=== PATIENT | male | born 1930 | race Caucasian/White ===

== ENCOUNTER 2019-05-16 21:00 | Emergency (ER) | payer BC ==
[~2019-05-16] VITALS: Ht 182.9 cm; Wt 90.7 kg
[2019-05-16 21:17] VITALS: BP_SYST 121
[2019-05-16] MEDS ORDERED: LIDOCAINE VISCOUS 2%, 15 ML UDC MM ONE (22:30)
[2019-05-17 00:18] VITALS: BP_SYST 122
== END 2019-05-17 00:18 | disposition home or self-care (01) ==
LOC: SED 21:00
DX: R33.9 Retention of urine, unspecified (principal); R07.89 Other chest pain; Z90.49 Acquired absence of other specified parts of digestive tract; Z95.1 Presence of aortocoronary bypass graft
CPT/HCPCS: 51702; 71100; 99284; J2001

== ENCOUNTER 2019-05-28 23:37 | Emergency (ER) | payer BC ==
[~2019-05-28] VITALS: Ht 185.4 cm; Wt 93.0 kg
--- NOTE | 2019-05-28 23:40 | NUR ---
Patient to ER bed 8 for evaluation.
[2019-05-28 23:42] VITALS: BP_SYST 123
--- NOTE | 2019-05-28 23:42 | NUR ---
ER MD Song at bedside for medical evaluation.
--- NOTE | 2019-05-28 23:45 | NUR ---
Forehead abrasion cleansed with NS, patient tolerated well.
--- NOTE | 2019-05-28 23:45 | NUR ---
Patient to ER via EMT ambulance from [place] for evaluation of abrasion to left sided forehead after non-syncopal trip and fall. No LOC reported, no neck or back pain. Patient able to move all extremities, no active bleeding noted. Patient is awake, alert and oriented in no acute distress, vital signs stable, respirations even and unlabored, skin warm and dry to touch. Patient brought to bed 8. Patient has been seen and evaluated by Dr Song, will continue to observe and assess.
--- NOTE | 2019-05-28 23:47 | NUR ---
Patient to CT Scan in stable condition via gurney.
[2019-05-28] MEDS ORDERED: POTA10TA15 PO (23:55)
[2019-05-28] MEDS ORDERED: METO25TA3 PO (23:55)
[2019-05-28] MEDS ORDERED: DOCU-144 PO (23:55)
[2019-05-28] MEDS ORDERED: FAMO20TA8 PO (23:55)
[2019-05-28] MEDS ORDERED: CLOP300T2 PO (23:55)
[2019-05-28] MEDS ORDERED: ASCO500T20 PO (23:55)
[2019-05-28] MEDS ORDERED: PARO-41 PO (23:55)
[2019-05-28] MEDS ORDERED: FURO-149 PO (23:55)
[2019-05-28] MEDS ORDERED: ASA81 PO (23:55)
[2019-05-28] MEDS ORDERED: LIP40 PO (23:55)
[2019-05-28] MEDS ORDERED: TEMA7.5C PO (23:55)
[2019-05-28] MEDS ORDERED: MULT-1117 PO (23:55)
--- NOTE | 2019-05-28 23:55 | NUR ---
Medication reconciliation completed with information provided by facility([facility]). Any prior medication reconciliation on file was reviewed and corrected.
[2019-05-29] MEDS ORDERED: DIPH-TET-PERTUS Vaccine 0.5 ML VIAL (ADACEL) I.M. ONE
--- NOTE | 2019-05-29 | NUR ---
Patient returned from CT scan in stable condition via [facility].
[2019-05-29 00:34] LABS: BASOPHILS # (AUTO) 0.1 K/uL (0.0-0.2); BASOPHILS % (AUTO) 0.9 % (0.0-2.0); EOSINOPHILS % (AUTO) 0.3 % (0.0-4.0); HEMATOCRIT 29.3 % (36-54); HEMOGLOBIN 9.9 g/dL (14.0-18.0); LYMPHOCYTES # (AUTO) 0.9 K/uL (1.0-5.5); LYMPHOCYTES % (AUTO) 12.9 % (20.5-51.5); MEAN CORPUSCULAR HEMOGLOBIN 30 pg (27-31); MEAN CORPUSCULAR HGB CONC 34 % (32-36); MEAN CORPUSCULAR VOLUME 88 fL (79.0-98.0); MONOCYTES # (AUTO) 1.2 K/uL (0.0-1.0); NEUTROPHILS # (AUTO) 4.9 K/uL (1.8-7.7); NEUTROPHILS % (AUTO) 68.9 % (40.0-70.0); PLATELET COUNT (AUTO) 261 K/uL (130-430); RED BLOOD CELL COUNT(AUTO) 3.34 MIL/uL (4.2-6.2); WHITE BLOOD COUNT (AUTO) 7.1 K/uL (4.8-10.8)
[2019-05-29 00:53] LABS: ALANINE AMINOTRANSFERASE 35 U/L (12-78); ALBUMIN 2.8 g/dL (3.4-4.8); ANION GAP 8 (5-15); ASPARTATE AMINOTRANSFERASE 23 U/L (10-37); CALCIUM 8.8 mg/dL (8.4-11.0); CHLORIDE 96 mmol/L (98-107); CREATININE 0.81 mg/dL (0.55-1.30); GLUCOSE 117 mg/dL (70-99); POTASSIUM 3.6 mmol/L (3.5-5.1); SODIUM SERUM 133 mmol/L (136-145); TOTAL BILIRUBIN 0.3 mg/dL (0.0-1.0); UREA NITROGEN, BLOOD 35 mg/dL (8-21)
--- NOTE | 2019-05-29 01:00 | NUR ---
Patient resting quietly in no acute distress, awaiting dispo. Will continue to observe and assess.
--- NOTE | 2019-05-29 02:00 | NUR ---
Patient resting quietly in no acute distress, awaiting dispo.
--- NOTE | 2019-05-29 02:06 | NUR ---
Blankets provided for patient comfort, awaiting dispo.
--- NOTE | 2019-05-29 02:15 | NUR ---
Called [facility] and advised them that the patient would be returning, just waiting on an ambulance to transport the patient back to the facility.
--- NOTE | 2019-05-29 03:00 | NUR ---
Patient resting quietly in no acute distress, awaiting ambulance transfer back to [place].
[2019-05-29 03:15] VITALS: BP_SYST 116
--- NOTE | 2019-05-29 03:15 | NUR ---
Patient given written and verbal discharge instructions and verbalizes understanding. ER MD discussed with patient the results and treatment provided. Patient in stable condition. ID arm band removed. IV catheter removed intact and dressing applied, no active bleeding. No RX given. Patient educated on pain management and to follow up with PMD. Pain Scale 0. Opportunity for questions provided and answered. Medication side effect fact sheet provided. Patient left ER in no acute distress, patient transported back to [facility] via EMT ambulance in stable condition. No adverse reaction noted to medication.
== END 2019-05-29 03:15 | disposition home or self-care (01) ==
LOC: SED 23:37
DX: S00.81XA Abrasion of other part of head, initial encounter (principal); I25.2 Old myocardial infarction; Z86.73 Personal history of transient ischemic attack (TIA), and cerebral infarction without residual deficits; Z79.82 Long term (current) use of aspirin; Z79.899 Other long term (current) drug therapy; W01.198A Fall on same level from slipping, tripping and stumbling with subsequent striking against other object, initial encounter; Y93.89 Activity, other specified; Y92.89 Other specified places as the place of occurrence of the external cause; Y99.8 Other external cause status
CPT/HCPCS: 36415; 70450-TC; 80053; 85025; 90715; 99284

== ENCOUNTER 2019-05-30 10:32 | Emergency (ER) | payer BC ==
[~2019-05-30] VITALS: Ht 185.4 cm; Wt 93.0 kg
[~2019-05-30 10:32] MED LIST: ASA81 PO; ASCO500T20 PO; CLOP300T2 PO; DOCU-144 PO; FAMO20TA8 PO; FURO-149 PO; LIP40 PO; METO25TA3 PO; MULT-1117 PO; PARO-41 PO; POTA10TA15 PO; TEMA7.5C PO
[2019-05-30 10:38] VITALS: BP_SYST 142
[2019-05-30 11:00] LABS: BASOPHILS # (AUTO) 0.1 K/uL (0.0-0.2); EOSINOPHILS % (AUTO) 0.2 % (0.0-4.0); HEMATOCRIT 31.3 % (36-54); HEMOGLOBIN 10.4 g/dL (14.0-18.0); LYMPHOCYTES # (AUTO) 0.9 K/uL (1.0-5.5); LYMPHOCYTES % (AUTO) 15.4 % (20.5-51.5); MEAN CORPUSCULAR HEMOGLOBIN 29 pg (27-31); MEAN CORPUSCULAR HGB CONC 33 % (32-36); MEAN CORPUSCULAR VOLUME 88 fL (79.0-98.0); MONOCYTES % (AUTO) 17.7 % (1.7-9.3); NEUTROPHILS # (AUTO) 3.6 K/uL (1.8-7.7); NEUTROPHILS % (AUTO) 65.7 % (40.0-70.0); PLATELET COUNT (AUTO) 251 K/uL (130-430); RED BLOOD CELL COUNT(AUTO) 3.55 MIL/uL (4.2-6.2); RED CELL DISTRIBUTION WIDTH 16.9 % (9.0-15.0); WHITE BLOOD COUNT (AUTO) 5.5 K/uL (4.8-10.8)
[2019-05-30 11:11] LABS: ANION GAP 1 (5-15); CALCIUM 9.1 mg/dL (8.4-11.0); CHLORIDE 100 mmol/L (98-107); CREATININE 0.92 mg/dL (0.55-1.30); GLUCOSE 119 mg/dL (70-99); POTASSIUM 3.8 mmol/L (3.5-5.1); SODIUM SERUM 132 mmol/L (136-145); UREA NITROGEN, BLOOD 30 mg/dL (8-21)
[2019-05-30 11:14] LABS: PROTHROMBIN TIME 10.6 SECS (9.5-12.5)
[2019-05-30 11:19] LABS: ALANINE AMINOTRANSFERASE 35 U/L (12-78); AMYLASE 29 U/L (0-100); ASPARTATE AMINOTRANSFERASE 19 U/L (10-37); TOTAL BILIRUBIN 0.4 mg/dL (0.0-1.0)
[2019-05-30 11:20] LABS: LIPASE 126 U/L (73-393)
[2019-05-30 13:05] VITALS: BP_SYST 142
== END 2019-05-30 13:05 | disposition home or self-care (01) ==
LOC: SED 10:32
DX: T83.018A Breakdown (mechanical) of other urinary catheter, initial encounter (principal); R33.9 Retention of urine, unspecified; N39.0 Urinary tract infection, site not specified; R03.0 Elevated blood-pressure reading, without diagnosis of hypertension; I25.2 Old myocardial infarction; Z86.73 Personal history of transient ischemic attack (TIA), and cerebral infarction without residual deficits; Z79.82 Long term (current) use of aspirin; Z79.899 Other long term (current) drug therapy; Y83.9 Surgical procedure, unspecified as the cause of abnormal reaction of the patient, or of later complication, without mention of misadventure at the time of the procedure; Y92.89 Other specified places as the place of occurrence of the external cause
CPT/HCPCS: 36415; 80053; 82150-TC; 83605; 83690-TC; 85025; 85610-TC; 85730-TC; 99284

== ENCOUNTER 2019-06-01 17:02 | Emergency (ER) | payer BC ==
[~2019-06-01] VITALS: Ht 185.4 cm; Wt 93.0 kg
--- NOTE | 2019-06-01 17:02 | NUR ---
Patient to ER via EMT ambulance, has been triaged and is waiting for bed assignment.
--- NOTE | 2019-06-01 17:05 | NUR ---
ER at bedside examining patient. Patient still waiting for bed placement.
[2019-06-01 17:06] VITALS: BP_SYST 157
[2019-06-01 17:33] LABS: BASOPHILS % (AUTO) 0.6 % (0.0-2.0); HEMATOCRIT 34.2 % (36-54); HEMOGLOBIN 11.5 g/dL (14.0-18.0); LYMPHOCYTES # (AUTO) 0.5 K/uL (1.0-5.5); LYMPHOCYTES % (AUTO) 5.5 % (20.5-51.5); MEAN CORPUSCULAR HEMOGLOBIN 29 pg (27-31); MEAN CORPUSCULAR HGB CONC 34 % (32-36); MEAN CORPUSCULAR VOLUME 87 fL (79.0-98.0); MONOCYTES % (AUTO) 11.5 % (1.7-9.3); NEUTROPHILS # (AUTO) 7.2 K/uL (1.8-7.7); NEUTROPHILS % (AUTO) 82.4 % (40.0-70.0); PLATELET COUNT (AUTO) 268 K/uL (130-430); RED BLOOD CELL COUNT(AUTO) 3.94 MIL/uL (4.2-6.2); RED CELL DISTRIBUTION WIDTH 16.2 % (9.0-15.0); WHITE BLOOD COUNT (AUTO) 8.7 K/uL (4.8-10.8)
--- NOTE | 2019-06-01 17:33 | NUR ---
Patient to ER bed 8 for evaluation. Side rails up.
--- NOTE | 2019-06-01 17:35 | NUR ---
Patient to ER via EMT ambulance for evaluation of urinary retention, abdominal distention and constipation. Patient is awake, alert and oriented in no acute distress, vital signs stable, respirations even and unlabored, skin warm and dry to touch. Patient has been seen and evaluated by Dr Marie while waiting for bed assignment. Will continue to observe and assess.
[2019-06-01 17:43] LABS: ANION GAP 12 (5-15); CALCIUM 9.5 mg/dL (8.4-11.0); CHLORIDE 94 mmol/L (98-107); CREATININE 0.76 mg/dL (0.55-1.30); GLUCOSE 138 mg/dL (70-99); POTASSIUM 3.5 mmol/L (3.5-5.1); SODIUM SERUM 129 mmol/L (136-145); UREA NITROGEN, BLOOD 43 mg/dL (8-21)
[2019-06-01 17:46] LABS: PROTHROMBIN TIME 10.5 SECS (9.5-12.5)
[2019-06-01 17:47] LABS: ALANINE AMINOTRANSFERASE 37 U/L (12-78); ALBUMIN 3.6 g/dL (3.4-4.8); ASPARTATE AMINOTRANSFERASE 17 U/L (10-37); LIPASE 150 U/L (73-393); TOTAL BILIRUBIN 0.4 mg/dL (0.0-1.0)
--- NOTE | 2019-06-01 17:55 | NUR ---
# 16 FR Gonzalez catheter with use of sterile technique. Immediate return of 500 cc clear/yellow urine noted. Bedside drainage bag placed below level of bladder. Urine sample collected and sent to lab. Pt tolerated procedure well. Patient unable to void, sent in from [facility] for evaluation of urinary retention.
[2019-06-01 18:05] LABS: BILIRUBIN,URINE NEGATIVE (NEGATIVE); BLOOD, URINE NEGATIVE (NEGATIVE); CLARITY/URINE CLEAR (CLEAR); COLOR,URINE YELLOW (YELLOW); GLUCOSE,URINE NEGATIVE (NEGATIVE); KETONES,URINE NEGATIVE (NEGATIVE); LEUKOCYTE ESTERASE ,URINE NEGATIVE (NEGATIVE); NITRITE, URINE NEGATIVE (NEGATIVE); PH,URINE 5.5 (5.0-8.0); PROTEIN URINE NEGATIVE (NEGATIVE); UROBILINOGEN,URINE 0.2 (0.2-1.0)
--- NOTE | 2019-06-01 18:05 | NUR ---
Patient reports relief after having soriano catheter placed. Awaiting results and dispo. Will continue to observe and assess.
--- NOTE | 2019-06-01 19:00 | NUR ---
Patient resting quietly in no acute distress, patient feeling better after soriano catheter placement. Awaiting transport back to [place].
[2019-06-01 19:50] VITALS: BP_SYST 140
--- NOTE | 2019-06-01 19:50 | NUR ---
Report called to [facility], ambulance here report given to EMT's for transport back to [facility].
--- NOTE | 2019-06-01 19:50 | NUR ---
Patient given written and verbal discharge instructions and verbalizes understanding. ER MD discussed with patient the results and treatment provided. Patient in stable condition. ID arm band removed. No RX given. Patient educated on pain management and to follow up with PMD. Pain Scale 0. Opportunity for questions provided and answered. Medication side effect fact sheet provided. Patient left ER in stable condition via EMT ambulance.
== END 2019-06-01 19:50 | disposition home or self-care (01) ==
LOC: SED 17:02
DX: R33.9 Retention of urine, unspecified (principal); I11.0 Hypertensive heart disease with heart failure; I50.9 Heart failure, unspecified; I25.2 Old myocardial infarction; Z90.49 Acquired absence of other specified parts of digestive tract; Z86.73 Personal history of transient ischemic attack (TIA), and cerebral infarction without residual deficits; Z79.82 Long term (current) use of aspirin; Z79.899 Other long term (current) drug therapy
CPT/HCPCS: 36415; 80053; 81003; 83690-TC; 85025; 85610-TC; 85730-TC; 99284

== ENCOUNTER 2019-06-03 22:55 | Inpatient (IN) | payer BC ==
[~2019-06-03] VITALS: Ht 182.9 cm; Wt 91.6 kg
[2019-06-03 23:09] VITALS: BP_SYST 119
--- NOTE | 2019-06-03 23:09 | NUR ---
Placed in room 06 . Placed on swimming coach or instructor, blood pressure machine and pulse oximeter. To gown for exam. Side rails up.
--- NOTE | 2019-06-03 23:23 | NUR ---
Dr. oJ bedside for Pt eval
[2019-06-03 23:33] LABS: BASOPHILS # (AUTO) 0.1 K/uL (0.0-0.2); BASOPHILS % (AUTO) 1.5 % (0.0-2.0); EOSINOPHILS % (AUTO) 0.4 % (0.0-4.0); HEMATOCRIT 29.4 % (36-54); HEMOGLOBIN 9.8 g/dL (14.0-18.0); LYMPHOCYTES # (AUTO) 0.8 K/uL (1.0-5.5); LYMPHOCYTES % (AUTO) 12.6 % (20.5-51.5); MEAN CORPUSCULAR HEMOGLOBIN 29 pg (27-31); MEAN CORPUSCULAR HGB CONC 33 % (32-36); MEAN CORPUSCULAR VOLUME 88 fL (79.0-98.0); MONOCYTES # (AUTO) 1.3 K/uL (0.0-1.0); MONOCYTES % (AUTO) 20.5 % (1.7-9.3); NEUTROPHILS # (AUTO) 4.1 K/uL (1.8-7.7); PLATELET COUNT (AUTO) 200 K/uL (130-430); RED BLOOD CELL COUNT(AUTO) 3.36 MIL/uL (4.2-6.2); RED CELL DISTRIBUTION WIDTH 16.5 % (9.0-15.0); WHITE BLOOD COUNT (AUTO) 6.4 K/uL (4.8-10.8)
--- NOTE | 2019-06-03 23:35 | NUR ---
Note undone in EDM - 06/04/19 at 0216 by [email or web address] Pt BIBA to ED C/O syncopal episode. Patient states that he was going to the bathroom to empty his Legbag and then was trying family back to his chair when he reports falling but does not remember the fall incident. Patient is not sure if he tripped over something or felt dizzy. Patient comes in with superficial abrasion and hematoma to the scalp. Patient is on blood thinners. 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 Patient also with a previous history of CVA with left-sided residual weakness. No other injuries and or complaints noted. VSS no s/s of acute distress. Resting on gurney with rails up
[2019-06-03 23:49] LABS: ANION GAP 8 (5-15); CALCIUM 8.6 mg/dL (8.4-11.0); CHLORIDE 100 mmol/L (98-107); CREATININE 0.89 mg/dL (0.55-1.30); GLUCOSE 106 mg/dL (70-99); POTASSIUM 3.7 mmol/L (3.5-5.1); SODIUM SERUM 135 mmol/L (136-145); UREA NITROGEN, BLOOD 33 mg/dL (8-21)
[2019-06-04 00:10] LABS: ALANINE AMINOTRANSFERASE 31 U/L (12-78); ALBUMIN 2.9 g/dL (3.4-4.8); ASPARTATE AMINOTRANSFERASE 19 U/L (10-37); TOTAL BILIRUBIN 0.3 mg/dL (0.0-1.0)
--- NOTE | 2019-06-04 00:45 | NUR ---
Pt repositioned for comfort. Pt verbalized "I'm feeling better"
--- NOTE | 2019-06-04 01:25 | NUR ---
Pt's family updated on pt condition and the possible admission
[2019-06-04] MEDS ORDERED: ASCO500C18 PO (01:43)
--- NOTE | 2019-06-04 01:58 | NUR ---
Carlos Curran from facility changed to new per [facility] protocol and Dr. Jo verbal order
[2019-06-04 01:59] VITALS: BP_SYST 133
--- NOTE | 2019-06-04 01:59 | NUR ---
Transfer to Telemetry via [facility] protocol. Licensed nurse present. IV present no signs or symptoms of infiltration.
--- NOTE | 2019-06-04 01:59 | NUR ---
Patient will be admitted to care of Dr. Peres. Admitted to Telemetry unit. Will go to room 132A. Belongings list completed. Summary report printed. Report will be given at bedside.
--- NOTE | 2019-06-04 01:59 | NUR ---
ADMISSION NOTE Received patient from ER via [facility], received report from DARYL GARCIA. Patient admitted with diagnosis of SYNCOPE, RULE OUT ACUTE CORONARY SYNDROME. Patient oriented to hospital routine, call light, toileting and safety-patient verbalized understanding.
--- NOTE | 2019-06-04 02:30 | NUR ---
initial notes: pt is awake, x 4. no pain. no sob and not distress. vital sign are stable and with in normal limit. sinus rhythm at monitor. pt has iv lock to his left fore arm gauge 20- intact and patent. pt has wounds on his buttocks, left knee, head, left hip and rash to his left groin. 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 urine sample was send. discuss to pt plan of care. how to use call light, safety precaution, medication and its side effects. pt verbalized understanding. needs attended. call light in reach. bed alarm on. side rails up. low bed position. will monitor.
[2019-06-04 02:59] LABS: BILIRUBIN,URINE NEGATIVE (NEGATIVE); BLOOD, URINE 3+ (NEGATIVE); CLARITY/URINE CLEAR (CLEAR); COLOR,URINE YELLOW (YELLOW); GLUCOSE,URINE NEGATIVE (NEGATIVE); KETONES,URINE NEGATIVE (NEGATIVE); LEUKOCYTE ESTERASE ,URINE 2+ (NEGATIVE); NITRITE, URINE NEGATIVE (NEGATIVE); PROTEIN URINE 1+ (NEGATIVE); UROBILINOGEN,URINE 0.2 (0.2-1.0)
[2019-06-04 03:05] LABS: BACTERIA,URINE MANY /HPF (None Seen); WBC,URINE 50-80 /HPF (0-3)
[2019-06-04 03:06] LABS: YEAST,URINE Few /HPF (None Seen)
--- NOTE | 2019-06-04 03:10 | NUR ---
DR. FUNES IS AT THE UNIT SEE THE PT. INFORM MD THE HAS POSITIVE UA AND CULTURE IS SEND ALREADY AND ALSO PT WANTS SLEEPING PILLS. MD ORDER ONE DOSE OF ROCEPHINE AND ONE OF RESTORIL.
[2019-06-04] MEDS ORDERED: cefTRIAXone 1 GM in D5W 50 ML IV SCH (03:15)
[2019-06-04] MEDS ORDERED: TEMAZEPAM 15 MG CAPSULE PO ONE (03:15)
--- NOTE | 2019-06-04 04:00 | NUR ---
PT IS RESTING RIGHT NOW. NO PAIN. NOT DISTRESS, NO SOB. STABLE. CALL LIGHT IN REACH. SIDE RAILS UP LOW BED POSITION. WILL MONITOR.
[2019-06-04] MEDS ORDERED: cefTRIAXone 1 GM IVPB PREMIX 50 ML IV ONE (04:07)
[2019-06-04] MEDS ORDERED: ACETAMINOPHEN 325 MG TABLET PO PRN (04:30)
[2019-06-04] MEDS ORDERED: ONDANSETRON HCL 4 MG/2 ML VIAL IVP PRN (04:30)
--- NOTE | 2019-06-04 06:00 | NUR ---
sleeping, comfortable. no pain. no sob. not distress. stable. needs attended. bed alarm on. side rails up. call light in reach. will follow-up.
--- NOTE | 2019-06-04 06:10 | NUR ---
CONSULTATION PAGED REASON FOR CONSULTATION:SYNCOPY, Hx OF [place] S/P STENT WAS CONSULT CALLED?Y PERSON WHO WAS NOTIFIED:RAKESH CONSULTING PHYSICIAN:DAVID FRANKS (STEVE HARDIN PROGRAMMING DEVELOPMENT PROJECT MANAGER) MACHINE INKER SPECIALTY:CARDIO MACHINE INKER PHONE NUMBER:[phone] REQUESTING PHYSICIAN:BLAIR DUCKWORTH
[2019-06-04 07:17] LABS: BASOPHILS # (AUTO) 0.1 K/uL (0.0-0.2); BASOPHILS % (AUTO) 0.9 % (0.0-2.0); EOSINOPHILS % (AUTO) 0.3 % (0.0-4.0); HEMATOCRIT 30.8 % (36-54); HEMOGLOBIN 10.3 g/dL (14.0-18.0); LYMPHOCYTES # (AUTO) 0.8 K/uL (1.0-5.5); LYMPHOCYTES % (AUTO) 12.7 % (20.5-51.5); MEAN CORPUSCULAR HEMOGLOBIN 29 pg (27-31); MEAN CORPUSCULAR HGB CONC 33 % (32-36); MEAN CORPUSCULAR VOLUME 88 fL (79.0-98.0); MONOCYTES # (AUTO) 1.4 K/uL (0.0-1.0); MONOCYTES % (AUTO) 22.1 % (1.7-9.3); PLATELET COUNT (AUTO) 187 K/uL (130-430); RED BLOOD CELL COUNT(AUTO) 3.52 MIL/uL (4.2-6.2); RED CELL DISTRIBUTION WIDTH 16.4 % (9.0-15.0); WHITE BLOOD COUNT (AUTO) 6.3 K/uL (4.8-10.8)
--- NOTE | 2019-06-04 07:30 | NUR ---
closing: pt is sleeping, comfortable. no pain. no difficulty of breathing. not distress. iv lock to left forearm is intact. soriano catheter is drain by gravity and lower that body level. needs attended. call light in reach. side rails up bed alarm for fall precaution. bed side report given to am rn.
[2019-06-04 07:32] LABS: INR 1.1 (0.80-1.20)
[2019-06-04 07:40] LABS: ANION GAP 5 (5-15); CALCIUM 8.6 mg/dL (8.4-11.0); CHLORIDE 101 mmol/L (98-107); CREATININE 0.72 mg/dL (0.55-1.30); GLUCOSE 97 mg/dL (70-99); PHOSPHORUS 2.9 mg/dL (2.7-4.5); POTASSIUM 3.4 mmol/L (3.5-5.1); SODIUM SERUM 136 mmol/L (136-145); UREA NITROGEN, BLOOD 25 mg/dL (8-21)
--- NOTE | 2019-06-04 07:41 | NUR ---
OPENING NOTE Patient resting in the bed with eyes closed. No acute distress. Respiration even and unlabored. Skin warm and dry to touch. IV intact to LFA, no redness, no swelling, patent. Dressing intact to head, no bleeding noted. F/C intact, drain gravity with yellow urine. Safety measure maintained. Call light within reached. Bed locked in low position, side rails up, bed alarm on. Will continue to monitor.
[2019-06-04 07:55] VITALS: BP_SYST 115
[2019-06-04 08:02] LABS: CHOLESTEROL 71 mg/dL (<200); TRIGLYCERIDES 44 mg/dL (30-150)
[2019-06-04 08:03] LABS: HDL CHOLESTEROL 46 mg/dL (>45); LDL CHOLESTEROL 20 mg/dL (<100)
--- NOTE | 2019-06-04 08:05 | NUR ---
PAGED PAGED STEVE HARDIN AT [phone] SPOKE WITH JIN.
--- NOTE | 2019-06-04 08:22 | NUR ---
DR. DOWD, STEVE CALLED BACK Received the call back from Dr. Dowd (director of national sales for Dr. Orozco), reported the Troponin=0.076. Dr. Dowd stated "don't call me for Troponin level". No new order at this time.
[2019-06-04] MEDS: DOCUSATE SODIUM 100 MG CAPSULE PO SCH ×2 (08:50→20:43)
[2019-06-04] MEDS: ASPIRIN 81 MG TAB.CHEW PO SCH (08:52)
[2019-06-04] MEDS: CLOPIDOGREL BISULFATE 75 MG TABLET PO SCH (08:52)
[2019-06-04] MEDS: FAMOTIDINE 20 MG TABLET PO SCH (08:52)
[2019-06-04] MEDS: ATORVASTATIN 20 MG TABLET PO SCH (08:52)
[2019-06-04] MEDS: MECLIZINE HCL 25 MG TABLET (ANITVERT) PO SCH ×3 (08:53→20:44)
[2019-06-04] MEDS: MULTIVITAMINS TAB 1 TABLET PO SCH (08:53)
[2019-06-04] MEDS: POTASSIUM CHLORIDE 10 MEQ TAB.PRT.SR PO SCH ×2 (08:53→20:44)
[2019-06-04] MEDS: FUROSEMIDE 40 MG TABLET PO SCH (08:57)
[2019-06-04] MEDS: METOPROLOL SUCCINATE 25 MG TAB.SR.24H (TOPROL XL) PO SCH (08:57)
[2019-06-04] MEDS ORDERED: PAROXETINE HCL 10 MG TABLET PO SCH (09:00)
--- NOTE | 2019-06-04 09:15 | NUR ---
SEEN AND EXAMINED BY BLAIR TEJEDA, WILL CHECK ORDER.
[2019-06-04] MEDS: NYSTATIN 15 GM TOPICAL POWDER TP SCH ×2 (10:02→20:46)
[2019-06-04] MEDS ORDERED: FLUCONAZOLE 200 MG TABLET (DIFLUCAN) PO ONE (10:30)
[2019-06-04] MEDS ORDERED: POTASSIUM CHLORIDE 20 MEQ TAB.PRT.SR PO ONE (10:30)
[2019-06-04] MEDS ORDERED: PARoxetine HCL 20 MG TABLET PO ONE (10:45)
--- NOTE | 2019-06-04 11:05 | NUR ---
PT SERVICE PT ambulated patient in the hallway using walker, tolerated well. Assisted back to bed. No acute distress. Safety measure maintained. Call light within reached. Bed locked in low position, side rails up, bed alarm on. Continue to monitor.
--- NOTE | 2019-06-04 12:08 | NUR ---
US CAROTID BILAT DOING AT BEDSIDE AT THIS TIME.
[2019-06-04 12:23] VITALS: BP_SYST 125
--- NOTE | 2019-06-04 15:32 | NUR ---
ROUND Patient resting in the bed comfortable. No acute distress. F/C intact, drain gravity. SCD in placed. Safety measure maintained. Call light within reached. Bed locked in low position, side rails up, bed alarm on. Continue to monitor.
--- NOTE | 2019-06-04 16:03 | NUR ---
Case mgt: S/W dtr Pallavi on phone--pt recently at [facility] for heart stents & bladder/renal issues--has indwelling Soriano-originally inserted early March-new soriano placed 06/03/19 here at [facility]-has had falls in last 30 days-has been AAO-if SNF needed, dtr s/w & wants [facility]-informed her to have 2nd choice in case [facility] doesn't accept due to insurance. Gave Pallavi cm direct ph#-PT eval done today-f/u for snf dc planning--JUNE RN
--- NOTE | 2019-06-04 16:19 | NUR ---
SEEN AND EXAMINED BY STEVE MERRITT.
[2019-06-04 17:06] VITALS: BP_SYST 118
--- NOTE | 2019-06-04 18:56 | NUR ---
CLOSING NOTE Patient resting in the bed with eyes closed. No acute distress. Respiration even and unlabored. Skin warm and dry to touch. IV intact to LFA, no redness, no swelling, patent. F/C intact, drain gravity with yellow urine. All needs met and attended. Safety measure maintained. Call light within reached. Bed locked in low position, side rails up, bed alarm on. Will endorse to night nurse.
[2019-06-04 19:19] VITALS: BP_SYST 136
--- NOTE | 2019-06-04 19:25 | NUR ---
initial notes: pt is awake, alert. orient x 4. complain of moderate pain to lower back. not distress, left sided weakness due cva. sinus rhythm at monitor. vital sign are stable. pt has iv lock to left forearm gauge 20-intact and patent. dressing to his wound are intact. soriano catheter is draining by gravity to clear urine. explained to pt plan of care, safety, medication and call light. pt verbalized understanding. needs attended. call light in reach. side rails up. bed alarm on. will monitor.
[2019-06-04] MEDS: HYDROcodone/ACETAMIN 5-325 MG TAB (NORCO/ VICODIN) PO PRN (19:30)
--- NOTE | 2019-06-04 20:45 | NUR ---
pt request to be assisted get out of bed and walk with fww. assisted pt out bed. dressing to left and right buttocks peel off. put a new dressing. pt walk up nursing station and back to bed. pt tolerate well. stable.
[2019-06-04] MEDS: cefTRIAXone 1 GM in D5W 50 ML IV SCH (20:46)
--- NOTE | 2019-06-04 21:30 | NUR ---
dr. lomax made round to pt.
--- NOTE | 2019-06-04 22:00 | NUR ---
notes: pt is resting. no sob. no acute distress. stable. call light in reach. side rails up. low bed position. will monitor.
[2019-06-04 23:57] VITALS: BP_SYST 125
--- NOTE | 2019-06-05 00:23 | NUR ---
pt wakes up and ask assistance to sit in bedside chair. assisted pt. to sit in chair. stable. no pain. needs attended. instructed pt to call right away when he gets tired, call light is in reach. will ana.
[2019-06-05] MEDS: TEMAZEPAM 15 MG CAPSULE PO PRN (00:51)
--- NOTE | 2019-06-05 01:26 | NUR ---
pt is back to bed. stable. no pain, needs attended. call light in reach. bed alarm on. will monitor.
--- NOTE | 2019-06-05 04:11 | NUR ---
notes: sleeping, comfortable. no pain. no sob. not distress. stable. needs attended. bed alarm on. side rails up. call light in reach. will follow-up.
--- NOTE | 2019-06-05 06:11 | NUR ---
notes: sleeping, no difficulty of breathing. no distress. no pain. stable on monitor. call in reach side rails up and bed alarm on. will monitor.
[2019-06-05 06:24] LABS: HEMATOCRIT 28.5 % (36-54); HEMOGLOBIN 9.6 g/dL (14.0-18.0); MEAN CORPUSCULAR HEMOGLOBIN 30 pg (27-31); MEAN CORPUSCULAR HGB CONC 34 % (32-36); MEAN CORPUSCULAR VOLUME 89 fL (79.0-98.0); PLATELET COUNT (AUTO) 161 K/uL (130-430); RED BLOOD CELL COUNT(AUTO) 3.21 MIL/uL (4.2-6.2); RED CELL DISTRIBUTION WIDTH 16.4 % (9.0-15.0); WHITE BLOOD COUNT (AUTO) 7.2 K/uL (4.8-10.8)
[2019-06-05 06:44] LABS: ANION GAP 5 (5-15); CALCIUM 8.3 mg/dL (8.4-11.0); CHLORIDE 101 mmol/L (98-107); CREATININE 0.74 mg/dL (0.55-1.30); GLUCOSE 102 mg/dL (70-99); POTASSIUM 4.2 mmol/L (3.5-5.1); SODIUM SERUM 135 mmol/L (136-145); UREA NITROGEN, BLOOD 20 mg/dL (8-21)
--- NOTE | 2019-06-05 07:23 | NUR ---
closing: sleeping, no difficulty of breathing. no distress. no pain. stable on monitor. needs attended the whole shift. call in reach side rails up and bed alarm on. bedside report given to am rn.
--- NOTE | 2019-06-05 07:40 | NUR ---
OPENING NOTE Patient sitting in the chair at bedside and eating breakfast. No acute distress. Respiration even and unlabored. Denied of pain. Skin warm and dry to touch. SL intact to LFA, no redness, no swelling, patent. F/C intact, drain gravity with yellow urine. Safety measure maintained. Call light within reached. Will continue to monitor.
[2019-06-05 08:00] VITALS: BP_SYST 121
[2019-06-05] MEDS: CLOPIDOGREL BISULFATE 75 MG TABLET PO SCH (09:33)
[2019-06-05] MEDS: MECLIZINE HCL 25 MG TABLET (ANITVERT) PO SCH ×3 (09:33→21:03)
[2019-06-05] MEDS: POTASSIUM CHLORIDE 10 MEQ TAB.PRT.SR PO SCH ×2 (09:33→21:03)
[2019-06-05] MEDS: FUROSEMIDE 40 MG TABLET PO SCH (09:33)
[2019-06-05] MEDS: FAMOTIDINE 20 MG TABLET PO SCH (09:33)
[2019-06-05] MEDS: MULTIVITAMINS TAB 1 TABLET PO SCH (09:33)
[2019-06-05] MEDS: DOCUSATE SODIUM 100 MG CAPSULE PO SCH ×2 (09:34→21:03)
[2019-06-05] MEDS: ASPIRIN 81 MG TAB.CHEW PO SCH (09:35)
[2019-06-05] MEDS: ATORVASTATIN 20 MG TABLET PO SCH (09:35)
[2019-06-05] MEDS: PARoxetine HCL 20 MG TABLET PO SCH (09:35)
[2019-06-05] MEDS: METOPROLOL SUCCINATE 25 MG TAB.SR.24H (TOPROL XL) PO SCH (09:35)
[2019-06-05] MEDS: NYSTATIN 15 GM TOPICAL POWDER TP SCH ×2 (09:41→21:03)
--- NOTE | 2019-06-05 09:44 | NUR ---
SCHEDULE MED GIVEN Patient resting in the bed. No acute distress. Schedule med given, tolerated well. F/C intact, drain gravity. Safety measure maintained. Bed locked in low position, side rails up, bed alarm on. Call light within reached. Continue to monitor.
[2019-06-05 10:14] LABS: ATYPICAL LYMPHOCYTES % 0 % (0-0); BAND % (MANUAL) 0 % (0-6); BASOPHILS % (MANUAL) 0 % (0-2); EOSINOPHILS % (MANUAL) 1 % (0-7); LYMPHOCYTES % (MANUAL) 10 % (20-46); MONOCYTES % (MANUAL) 21 % (0-11)
--- NOTE | 2019-06-05 11:20 | NUR ---
SLEEPING Patient sleeping in the bed at this time. No acute distress. F/C intact, drain gravity. SCD in placed. Safety measure maintained. Call light within reached. Bed locked in low position, side rails up, bed alarm on. Continue to monitor.
--- NOTE | 2019-06-05 13:33 | NUR ---
DC PLANNING Order for dc planning for SNF. Per CM notes yest dtr wants [facility], pt lives @ [facility]. Called & spoke w Charlene @ [place], ph [phone]. States will need to get auth tomorrow, faxed pt info requested fax [phone].
[2019-06-05 14:55] VITALS: BP_SYST 112
--- NOTE | 2019-06-05 16:00 | NUR ---
BATHROOM Assisted to get up of the bed. Ambulated to bathroom with me and using walker. Void and regular BM noted. Assisted bed to bed. No acute distress. F/C intact, drain gravity. Safety measure maintained. Call light within reached. Bed locked in low position, side rails up, bed alarm on. SCD applied. Continue to monitor.
[2019-06-05 17:13] VITALS: BP_SYST 110
[2019-06-05] MEDS: HYDROcodone/ACETAMIN 5-325 MG TAB (NORCO/ VICODIN) PO PRN (17:28)
--- NOTE | 2019-06-05 17:29 | NUR ---
NORCO GIVEN Patient c/o right shoulder pain 05/02, [place] 5/325mg 1 tab PO given as ordered. No acute distress. Safety measure maintained. Bed locked in low position, side rails up, bed alarm on. Call light within reached. Continue to monitor.
--- NOTE | 2019-06-05 19:01 | NUR ---
CLOSING NOTE Patient resting in the bed. No acute distress. Respiration even and unlabored. Skin warm and dry to touch. IV intact to LFA, no redness, no swelling, patent. F/C intact, drain gravity with yellow urine. SCD applied. All needs met and attended. Safety measure maintained. Call light within reached. Bed locked in low position, side rails up, bed alarm on. Will endorse to night nurse.
--- NOTE | 2019-06-05 19:20 | NUR ---
OPENING NOTES RECEIVED PATIENT IN BED AWAKE FAMILY AT BEDSIDE. BREATHING UNLABORED ON ROOM AIR. DENIES PAIN AT THIS TIME. BED IN LOWEST LOCKED POSITION. BED ALARM ON. CALL LIGHT WITH IN REACH.
[2019-06-05 20:57] VITALS: BP_SYST 122
[2019-06-05] MEDS: cefTRIAXone 1 GM in D5W 50 ML IV SCH (21:02)
--- NOTE | 2019-06-05 21:03 | NUR ---
MED PASS PATIENT DUE MEDICATIONS GIVEN AND TOLERATED. VITAL SIGNS STABLE. CALL LIGHT WITH IN REACH.
[2019-06-06] MEDS: TEMAZEPAM 15 MG CAPSULE PO PRN (00:07)
--- NOTE | 2019-06-06 00:07 | NUR ---
SLEEP PATIENT MEDICATED WITH RESTORIL FOR C/O UNABLE TO SLEEP. BED IN LOWEST LOCKED POSITION. BED ALARM ON. CALL LIGHT WITH IN REACH.
[2019-06-06 01:21] VITALS: BP_SYST 119
--- NOTE | 2019-06-06 03:34 | NUR ---
ROUNDS PATIENT RESTING IN BED. BREATHING UNLABORED ON ROOM AIR. CALL LIGHT WITH IN REACH. BED ALARM ON.
--- NOTE | 2019-06-06 04:30 | NUR ---
ROUNDS ASSISTED PATIENT TO SIT ON THE EDGE OF THE BED PER PATIENT REQUEST. PATIENT MONITORED FOR SAFETY.
--- NOTE | 2019-06-06 06:22 | NUR ---
CLOSING NOTES PATIENT RESTING IN BED. NO DISTRESS NOTED. IV LINE INTACT TO LFA. PATIENT NEEDS ATTENDED. BED IN LOWEST LOCKED POSITION WITH ALARM ON. SCD'S OFF AT THIS TIME PER PATIENT REQUEST. CALL LIGHT WITH IN EASY REACH.
[2019-06-06 06:54] LABS: BASOPHILS # (AUTO) 0.1 K/uL (0.0-0.2); EOSINOPHILS # (AUTO) 0.1 K/uL (0.0-0.4); EOSINOPHILS % (AUTO) 0.7 % (0.0-4.0); HEMATOCRIT 30.2 % (36-54); HEMOGLOBIN 10.3 g/dL (14.0-18.0); LYMPHOCYTES # (AUTO) 0.8 K/uL (1.0-5.5); MEAN CORPUSCULAR HEMOGLOBIN 30 pg (27-31); MEAN CORPUSCULAR HGB CONC 34 % (32-36); MEAN CORPUSCULAR VOLUME 89 fL (79.0-98.0); MONOCYTES # (AUTO) 1.6 K/uL (0.0-1.0); MONOCYTES % (AUTO) 20.2 % (1.7-9.3); NEUTROPHILS # (AUTO) 5.2 K/uL (1.8-7.7); NEUTROPHILS % (AUTO) 68.1 % (40.0-70.0); PLATELET COUNT (AUTO) 160 K/uL (130-430); RED BLOOD CELL COUNT(AUTO) 3.42 MIL/uL (4.2-6.2); RED CELL DISTRIBUTION WIDTH 16.6 % (9.0-15.0); WHITE BLOOD COUNT (AUTO) 7.7 K/uL (4.8-10.8)
[2019-06-06 06:57] LABS: ANION GAP 5 (5-15); CALCIUM 8.6 mg/dL (8.4-11.0); CHLORIDE 100 mmol/L (98-107); CREATININE 0.71 mg/dL (0.55-1.30); GLUCOSE 107 mg/dL (70-99); POTASSIUM 4.3 mmol/L (3.5-5.1); SODIUM SERUM 133 mmol/L (136-145); UREA NITROGEN, BLOOD 17 mg/dL (8-21)
--- NOTE | 2019-06-06 07:52 | NUR ---
Opening Note Report received from Megan KEBEDE shift nurse. patient is currently having breakfast in bed. Patient does not report feeling dizzy. IV is on the RISinCola running D5W @70. 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 No output from drains. O2 is @2l, current O2 sat is 94%. Bed is locked and in the lowest position. Will continue to closely monitor. Addendum: 06/06/19 at 1013 by Alma Araujo RN not intended for this patient
--- NOTE | 2019-06-06 07:55 | NUR ---
Opening Note Patient is currently awake and eating breakfast in bed. Patient does not report any dizziness at the moment. VSS. Iv is on the LFA 20g SL. Call light is within reach and bed is in the lowest position. Will continue to monitor.
[2019-06-06 07:58] VITALS: BP_SYST 127
[2019-06-06] MEDS: ATORVASTATIN 20 MG TABLET PO SCH (08:33)
[2019-06-06] MEDS: DOCUSATE SODIUM 100 MG CAPSULE PO SCH ×2 (08:33→20:21)
[2019-06-06] MEDS: ASPIRIN 81 MG TAB.CHEW PO SCH (08:34)
[2019-06-06] MEDS: FAMOTIDINE 20 MG TABLET PO SCH (08:34)
[2019-06-06] MEDS: MULTIVITAMINS TAB 1 TABLET PO SCH (08:34)
[2019-06-06] MEDS: MECLIZINE HCL 25 MG TABLET (ANITVERT) PO SCH ×3 (08:34→20:21)
[2019-06-06] MEDS: CLOPIDOGREL BISULFATE 75 MG TABLET PO SCH (08:34)
[2019-06-06] MEDS: POTASSIUM CHLORIDE 10 MEQ TAB.PRT.SR PO SCH ×2 (08:34→20:21)
[2019-06-06] MEDS: PARoxetine HCL 20 MG TABLET PO SCH (08:34)
[2019-06-06] MEDS: METOPROLOL SUCCINATE 25 MG TAB.SR.24H (TOPROL XL) PO SCH (08:35)
[2019-06-06] MEDS: FUROSEMIDE 40 MG TABLET PO SCH (08:36)
[2019-06-06] MEDS: NYSTATIN 15 GM TOPICAL POWDER TP SCH ×2 (08:36→20:23)
--- NOTE | 2019-06-06 08:52 | NUR ---
Nutrition Update Darek Scale 17 noted. Pt admitted for head laceration Diet: Regular BMI: 27.4 RD to follow per nutrition care standards.
--- NOTE | 2019-06-06 10:14 | NUR ---
Rounds Patient is currently sitting up in a chair.
[2019-06-06] MEDS: FLUCONAZOLE 100 MG TABLET (DIFLUCAN) PO SCH (11:05)
--- NOTE | 2019-06-06 12:18 | NUR ---
Rounds Patient is sleeping in bed. Call light is within reach
--- NOTE | 2019-06-06 12:44 | NUR ---
SS Notes: RADIOLOGICAL METALLURGIST emailed Christoph Hendricks from [facility] for a Medi-Jayce assessment. RADIOLOGICAL METALLURGIST will remain available.
[2019-06-06 13:02] VITALS: BP_SYST 118
--- NOTE | 2019-06-06 14:32 | NUR ---
Rounds Assisted the patient to the restroom and back into bed.
[2019-06-06 16:38] VITALS: BP_SYST 121
--- NOTE | 2019-06-06 16:39 | NUR ---
Rounds Patient is resting in bed. NO signs of distress noted at the moment.
[2019-06-06] MEDS: HYDROcodone/ACETAMIN 5-325 MG TAB (NORCO/ VICODIN) PO PRN ×2 (16:58→23:45)
[2019-06-06] MEDS: RIVAROXABAN 15 MG TABLET PO SCH (17:07)
--- NOTE | 2019-06-06 18:30 | NUR ---
Closing Note Patient is having dinner in bed. No signs of acute distress noted. Will endorse care to the oncoming nurse.
--- NOTE | 2019-06-06 19:15 | NUR ---
Opening notes Received report. Patient resting in bed. No signs of distress noted. Breathing even and unlabored. IV patent and intact, saline locked. No needs at this time. Call light with the patient. Safety precautions in place.
[2019-06-06 20:14] VITALS: BP_SYST 123
[2019-06-06] MEDS: cefTRIAXone 1 GM in D5W 50 ML IV SCH (20:21)
--- NOTE | 2019-06-06 21:00 | NUR ---
Medications given. Educated the patient the action and side effects of medications. Patient verbalized understanding and tolerated well. No signs of allergic reaction. No other needs. Call light with the patient. Safety precautions in place. Bilateral SCDs placed on patient.
--- NOTE | 2019-06-06 23:45 | NUR ---
Pain Patient complains of 5/10 pain to lower back. PRN pain medications given. Educated the action and side effects of medications. Patient verbalized understanding and tolerated well. No signs of allergic reaction noted. Breathing even and unlabored.
[2019-06-07 00:12] VITALS: BP_SYST 133
--- NOTE | 2019-06-07 02:00 | NUR ---
Resting Patient resting comfortably in bed. No signs of distress noted. Breathing even and unlabored. Patient repositioned to comfort. No other needs. call light with the patient. Safety precautions in place.
--- NOTE | 2019-06-07 04:00 | NUR ---
Sleeping No signs of distress noted. Breathing even and unlabored. Call light with the patient. Safety precautions in place.
--- NOTE | 2019-06-07 06:42 | NUR ---
Closing notes Patient resting comfortably in bed. No signs of distress noted. Breathing even and unlabored. IV patent and intact, saline locked. Gonzalez catheter in place, draining urine. All needs met throughout the shift. Call light with the patient. Safety precautions in place. Will endorse care to day shift RN.
--- NOTE | 2019-06-07 07:15 | NUR ---
OPENING NOTE: Received SBAR report and plan of care from MST RN.
[2019-06-07 08:00] VITALS: BP_SYST 141
[2019-06-07] MEDS: DOCUSATE SODIUM 100 MG CAPSULE PO SCH (08:43)
[2019-06-07] MEDS: ATORVASTATIN 20 MG TABLET PO SCH (08:44)
[2019-06-07] MEDS: PARoxetine HCL 20 MG TABLET PO SCH (08:45)
[2019-06-07] MEDS: POTASSIUM CHLORIDE 10 MEQ TAB.PRT.SR PO SCH (08:45)
[2019-06-07] MEDS: FUROSEMIDE 40 MG TABLET PO SCH (08:45)
[2019-06-07] MEDS: FAMOTIDINE 20 MG TABLET PO SCH (08:45)
[2019-06-07] MEDS: MULTIVITAMINS TAB 1 TABLET PO SCH (08:46)
[2019-06-07] MEDS: MECLIZINE HCL 25 MG TABLET (ANITVERT) PO SCH ×2 (08:46→14:52)
[2019-06-07] MEDS: METOPROLOL SUCCINATE 25 MG TAB.SR.24H (TOPROL XL) PO SCH (08:46)
[2019-06-07] MEDS: FLUCONAZOLE 100 MG TABLET (DIFLUCAN) PO SCH (08:46)
[2019-06-07] MEDS: CLOPIDOGREL BISULFATE 75 MG TABLET PO SCH (08:47)
[2019-06-07] MEDS: NYSTATIN 15 GM TOPICAL POWDER TP SCH (08:57)
--- NOTE | 2019-06-07 09:00 | NUR ---
ROUNDS: Patient resting in bed, AAOx4 verbal and able to make his needs known. Morning med pass completed with no ASE noted. Will continue to monitor.
--- NOTE | 2019-06-07 10:22 | NUR ---
Discharge Planning: DCP faxed pt referral to [facility] (f [phone] p [phone]) on 06/06/19, spoke to Agnes. Addendum: 06/07/19 at 1035 by Neris Guevara DP DCP followed up with Agnes at [facility] (f [phone] p [phone]) accepted patient waiting for auth. CM made aware. Addendum: 06/07/19 at 1112 by Neris Guevara DP DCP spoke to Kirstie at [facility] (f [phone] p [phone]) authorization was received, patient accepted to [address] NGUYENP made CM aware. Addendum: 06/07/19 at 1427 by Neris Guevara DP [facility] (f [phone] p [phone]) RM [address] transportation arranged with [facility] ([phone]) 4:00pm P/U nurse made aware, patient packet taken to nurse station.
--- NOTE | 2019-06-07 11:00 | NUR ---
ROUNDS: Patient continues AAOx4 verbal and ambulatory with walker. Gonzalez cath intact, secured, patent with no kinks in line, yellow urine freely flowing to gravity. LT FA #20 peripheral IV intact, patent and flushed well, no signs of infection noted, dressing is clean dry and intact. Patient is resting in bed, breathing is even and unlabored, no signs of distress noted, will continue to monitor.
[2019-06-07] MEDS ORDERED: RIVA15TA PO (12:25)
[2019-06-07] MEDS ORDERED: DIFLUCAN PO (12:28)
[2019-06-07] MEDS ORDERED: ROCPM1 IV (12:30)
[2019-06-07 12:45] VITALS: BP_SYST 134
--- NOTE | 2019-06-07 13:00 | NUR ---
ROUNDS: Patient resting in bed, no complaint of pain, patient is verbal and able to make his needs known all needs met. No signs of distress noted, will continue to monitor.
[2019-06-07 13:04] VITALS: BP_SYST 134
--- NOTE | 2019-06-07 14:28 | NUR ---
DC PLANNING: CM SPOKE WITH PATIENT'S DAUGHTER (MOSHE CARVAJAL) @ AND INFORM HER THAT PATIENT IS ACCEPTED AT [facility] ROOM [address]. TRANSPORTATION BEEF BREAKER TIME IS AT 1600 VIA [facility].
--- NOTE | 2019-06-07 14:55 | NUR ---
WOUND EVALUATION: Late note for 06/07/19 at 1455 secondary to patient care. Wound Consult received from Dr. Peres. Thank you, Dr. Peres, for the consult. Patient received in a [place] Bed with an Isoflex HAYLEY mattress with low air loss therapy initiated, awake, alert, and oriented. Patient is able to turn in bed independently. Darek Score is a 15. Past Medical History: Mechanical fall with head laceration, CVA 2 with residual left-sided weakness, Cardiac Stent, Myocardial Infarction, GERD, Cholecystectomy, L4-L5 laminectomy, Coronary Artery Disease, Major Depression, Hypertension, Left Hemithyroidectomy, Hyperlipidemia. Recent Labs: WBC 7.7, RBC 3.42, hemoglobin 10.3, hematocrit 30.2, sodium 133, glucose 107, BNP 239, mild troponin elevation, albumin 2.9, PTT 24.3. Microbiology: Blood culture results 2 in progress. Urine culture results negative. MRSA screen results negative. Intrinsic factors that delay wound healing: Hypoalbuminemia, Coronary Artery Disease. Extrinsic factors that delay wound healing: Decreased mobility. Patient is status post fall at home. Wound Assessment: 1. Posterior scalp: Blanchable erythema from a healing abrasion, present on admission. No odor, no drainage. Site measures 4.5 cm x 4.0 cm. Recommend: No dressing needed. Continue to monitor site every shift. 2. Left knee: Abrasion, present on admission. Wound bed has 100% dry red scab. No odor, no drainage. Periwound intact. Wound measures 1.0 cm x 2.5 cm. 3. Left knee, inferior to wound 2: Chronic wound, present on admission. Wound bed has 100% dry red scab. No odor, no drainage. Periwound intact. Wound measures 0.5 cm x 4.0 cm. Recommend: No dressings needed. Continue to monitor sites every shift. 4. Right buttock: Abrasion, present on admission. Wound bed has 100% dry red scab. No odor, no drainage. Periwound intact. Wound measures 3.4 cm x 3.0 cm. 5. Left buttock: Abrasion, present on admission. Wound bed has 100% dry red scab. No odor, no drainage. Periwound intact. Wound measures 4.0 cm x 1.5 cm. 6. Left outer buttock: Chronic wound, present on admission. Wound bed has 100% dry red scab. No odor, no drainage. Periwound intact. Wound measures 0.6 cm x 1.0 cm. 7. Left outer buttock, inferior to wound 6: Chronic wound, present on admission. Wound bed has 100% dry red scab. No odor, no drainage. Periwound intact. Wound measures 0.6 cm x 1.0 cm. Recommend: Cleanse followed areas with mild soap and water. Pat dry. Apply moisture barrier cream to involved areas. Perform site care 4 times a day, and as needed for soiling. 8. Left lateral hip: Blanchable erythema, present on admission. Recommend: No dressing needed. Offload erythematous area at all times. Continue to monitor site every shift. Also recommend: Encourage and assist patient as needed with repositioning side to side only every 2 hours with pillow support, and off-load pressure areas with pillows for pressure re-distribution. Offload, elevate and float bilateral heels with pillows. Perform skin care and monitor skin integrity Q shift. Use moisture barrier cream on buttocks and other moisture susceptible areas QID and as needed for soiling. Maintain patient on a low air-loss mattress.
--- NOTE | 2019-06-07 15:00 | NUR ---
ROUNDS: Wound care performed and dressings changed per wound care guidelines, patient tolerated well with minimal discomfort. Patient is discharging this shift at 16:00, Manuel at the receiving facility call and asked that we administer the QDay IV Rocephin as they had no RN on duty this evening and patient would miss his dose, so I hung the IV Rocephin this shift.
[2019-06-07] MEDS: cefTRIAXone 1 GM in D5W 50 ML IV SCH (15:48)
[2019-06-07 16:25] VITALS: BP_SYST 129
--- NOTE | 2019-06-07 17:00 | NUR ---
ROUNDS: Patient continues AAOx4, awaiting transport for discharge to [facility]. IV ABX infused with no ASE noted. Peripheral #20 IV to LT FA continues to be patent, flushed well, no signs of infection noted, dressing is clean dry and intact. Will leave in place for transfer for continuing IV ABX therapy at [facility].
[2019-06-07] MEDS: RIVAROXABAN 15 MG TABLET PO SCH (17:19)
--- NOTE | 2019-06-07 19:15 | NUR ---
DISCHARGE: Patient picked up by [facility] ambulance for transfer back to [facility] where the patient lives. Patient stable for transport, no signs of distress noted.
== END 2019-06-07 19:15 | DRG 73 ==
LOC: SED 22:55 → STU 06-04 01:44
PROVIDERS: ADMIT Student in an Organized Health Care Education/Training Program; ATTEND Student in an Organized Health Care Education/Training Program
DX: G90.8 Other disorders of autonomic nervous system (principal); I21.A1 Myocardial infarction type 2; E44.0 Moderate protein-calorie malnutrition; I69.354 Hemiplegia and hemiparesis following cerebral infarction affecting left non-dominant side; N39.0 Urinary tract infection, site not specified; Z66 Do not resuscitate; D64.9 Anemia, unspecified; E78.5 Hyperlipidemia, unspecified; E87.6 Hypokalemia; F32.9 Major depressive disorder, single episode, unspecified; I48.0 Paroxysmal atrial fibrillation; B37.9 Candidiasis, unspecified; I10 Essential (primary) hypertension; S01.01XA Laceration without foreign body of scalp, initial encounter; I25.10 Atherosclerotic heart disease of native coronary artery without angina pectoris; K21.9 Gastro-esophageal reflux disease without esophagitis; Z87.891 Personal history of nicotine dependence; Z90.49 Acquired absence of other specified parts of digestive tract; Z95.5 Presence of coronary angioplasty implant and graft; W18.39XA Other fall on same level, initial encounter; Y93.89 Activity, other specified; Z68.27 Body mass index [BMI] 27.0-27.9, adult; Y92.121 Bathroom in nursing home as the place of occurrence of the external cause; Y99.8 Other external cause status; Z79.82 Long term (current) use of aspirin; Z79.899 Other long term (current) drug therapy; Z82.49 Family history of ischemic heart disease and other diseases of the circulatory system
CPT/HCPCS: 36415; 70450-TC; 71045; 80048; 80053; 80061; 81000-TC; 83036; 83605; 83735-TC; 83880; 84100-TC; 84439; 84443-TC; 84484; 85007; 85025; 85027; 85610-TC; 85730-TC; 87040-TC; 87081; 87086; 93005; 93306; 93880; 97116-GP; 97530-GP; 99285; G0378; J0696; J7060; J8597

== ENCOUNTER 2019-07-26 18:52 | Emergency (ER) | payer BC ==
[~2019-07-26] VITALS: Ht 182.9 cm; Wt 88.5 kg
[~2019-07-26 18:52] MED LIST changes: +ASCO500C18 PO; -ASCO500T20 PO; +DIFLUCAN PO; +RIVA15TA PO; +ROCPM1 IV
[2019-07-26 19:49] VITALS: BP_SYST 135
[2019-07-26] MEDS ORDERED: TEMA15CA5 PO (20:05)
[2019-07-26] MEDS ORDERED: PARO10TA75 PO (20:07)
[2019-07-26 20:39] LABS: BASOPHILS % (AUTO) 0.8 % (0.0-2.0); EOSINOPHILS # (AUTO) 0.5 K/uL (0.0-0.4); HEMATOCRIT 32.7 % (36-54); LYMPHOCYTES # (AUTO) 1.2 K/uL (1.0-5.5); LYMPHOCYTES % (AUTO) 22.6 % (20.5-51.5); MEAN CORPUSCULAR HEMOGLOBIN 29 pg (27-31); MEAN CORPUSCULAR HGB CONC 34 % (32-36); MEAN CORPUSCULAR VOLUME 86 fL (79.0-98.0); NEUTROPHILS # (AUTO) 2.7 K/uL (1.8-7.7); NEUTROPHILS % (AUTO) 49.6 % (40.0-70.0); PLATELET COUNT (AUTO) 163 K/uL (130-430); RED BLOOD CELL COUNT(AUTO) 3.81 MIL/uL (4.2-6.2); RED CELL DISTRIBUTION WIDTH 15.5 % (9.0-15.0); WHITE BLOOD COUNT (AUTO) 5.5 K/uL (4.8-10.8)
[2019-07-26 20:42] VITALS: BP_SYST 135
[2019-07-26 20:51] LABS: ANION GAP 3 (5-15); CHLORIDE 100 mmol/L (98-107); CREATININE 0.64 mg/dL (0.55-1.30); GLUCOSE 126 mg/dL (70-99); POTASSIUM 4.1 mmol/L (3.5-5.1); SODIUM SERUM 132 mmol/L (136-145); UREA NITROGEN, BLOOD 23 mg/dL (8-21)
[2019-07-26 20:56] LABS: ALANINE AMINOTRANSFERASE 28 U/L (12-78); ALBUMIN 2.8 g/dL (3.4-4.8); ASPARTATE AMINOTRANSFERASE 16 U/L (10-37); TOTAL BILIRUBIN 0.3 mg/dL (0.0-1.0)
[2019-07-26 21:58] LABS: BILIRUBIN,URINE NEGATIVE (NEGATIVE); BLOOD, URINE NEGATIVE (NEGATIVE); CLARITY/URINE SL HAZY (CLEAR); COLOR,URINE YELLOW (YELLOW); GLUCOSE,URINE NEGATIVE (NEGATIVE); KETONES,URINE NEGATIVE (NEGATIVE); LEUKOCYTE ESTERASE ,URINE 2+ (NEGATIVE); NITRITE, URINE NEGATIVE (NEGATIVE); PROTEIN URINE NEGATIVE (NEGATIVE); UROBILINOGEN,URINE 0.2 (0.2-1.0)
[2019-07-26 22:05] LABS: BACTERIA,URINE FEW /HPF (None Seen); MUCUS,URINE 1+ /LPF (None Seen); RBC,URINE NONE SEEN /HPF (0-3); YEAST,URINE Few /HPF (None Seen)
[2019-07-26] MEDS ORDERED: CIPROFLOXACIN HCL 500 MG TABLET PO ONE (22:15)
== END 2019-07-26 20:42 | disposition home or self-care (01) ==
LOC: SED 18:52
DX: N39.0 Urinary tract infection, site not specified (principal); I25.2 Old myocardial infarction; N40.0 Benign prostatic hyperplasia without lower urinary tract symptoms; Z79.899 Other long term (current) drug therapy; Z86.73 Personal history of transient ischemic attack (TIA), and cerebral infarction without residual deficits
CPT/HCPCS: 36415; 80053; 81000-TC; 83605; 85025; 87040-TC; 87086; 87186-TC; 99283

== ENCOUNTER 2019-10-23 18:48 | Emergency (ER) | payer BC ==
[~2019-10-23] VITALS: Ht 182.9 cm; Wt 92.1 kg
[~2019-10-23 18:48] MED LIST changes: -ASA81 PO; -ASCO500C18 PO; -CLOP300T2 PO; -DIFLUCAN PO; -DOCU-144 PO; -LIP40 PO; -MULT-1117 PO; -PARO-41 PO; +PARO10TA75 PO; -ROCPM1 IV; +TEMA15CA5 PO; -TEMA7.5C PO
[2019-10-23 18:50] VITALS: BP_SYST 153
[2019-10-23] MEDS ORDERED: PHENAZOPYRIDINE HCL 100 MG TABLET PO ONE (20:00)
[2019-10-23] MEDS ORDERED: LIDOCAINE VISCOUS 2%, 15 ML UDC MM ONE (20:00)
[2019-10-23 20:39] LABS: BILIRUBIN,URINE NEGATIVE (NEGATIVE); BLOOD, URINE 3+ (NEGATIVE); CLARITY/URINE SL CLOUDY (CLEAR); COLOR,URINE RED (YELLOW); GLUCOSE,URINE NEGATIVE (NEGATIVE); KETONES,URINE NEGATIVE (NEGATIVE); LEUKOCYTE ESTERASE ,URINE 1+ (NEGATIVE); NITRITE, URINE NEGATIVE (NEGATIVE); PROTEIN URINE 2+ (NEGATIVE); UROBILINOGEN,URINE 0.2 (0.2-1.0)
[2019-10-23 20:54] LABS: BACTERIA,URINE FEW /HPF (None Seen); MUCUS,URINE None Seen /LPF (None Seen); RBC,URINE >100 /HPF (0-3)
[2019-10-23] MEDS ORDERED: CIPROFLOXACIN HCL 500 MG TABLET PO ONE (21:30)
[2019-10-23 21:35] VITALS: BP_SYST 146
[2019-10-24] MEDS ORDERED: LIDOCAINE JELLY 5 ML TUBE ONE (08:21)
== END 2019-10-23 21:35 | disposition home or self-care (01) ==
LOC: SED 18:48
DX: N48.89 Other specified disorders of penis (principal); N39.0 Urinary tract infection, site not specified; R31.9 Hematuria, unspecified; N40.0 Benign prostatic hyperplasia without lower urinary tract symptoms; I63.9 Cerebral infarction, unspecified; I09.0 Rheumatic myocarditis; Z79.899 Other long term (current) drug therapy
CPT/HCPCS: 81000; 87086; 99284; J2001

== ENCOUNTER 2019-10-24 06:52 | Emergency (ER) | payer BC ==
[~2019-10-24] VITALS: Ht 182.9 cm; Wt 92.1 kg
[2019-10-24 07:00] VITALS: BP_SYST 140
[2019-10-24 08:32] VITALS: BP_SYST 140
== END 2019-10-24 08:32 | disposition home or self-care (01) ==
LOC: SED 06:52
DX: R31.9 Hematuria, unspecified (principal); I63.9 Cerebral infarction, unspecified; N40.0 Benign prostatic hyperplasia without lower urinary tract symptoms; I09.0 Rheumatic myocarditis; Z79.899 Other long term (current) drug therapy
CPT/HCPCS: 99284